=== PATIENT | male | born 1975 | race Caucasian/White ===

== ENCOUNTER 2025-03-10 08:12 | Emergency (ER) | payer BC ==
[~2025-03-10] VITALS: Ht 190.5 cm; Wt 101.0 kg
[2025-03-10 08:15] VITALS: TEMP 98.1
--- NOTE | 2025-03-10 08:42 | ED.PDOC ---
Back pain HPI HPI Comments 50 y.o male presents to the ED for a chief complaint of left lower back pain radiating to left lower leg associated with numbness going to his left leg and foot that started 5 days ago. Patient reports waking up with his 110lb cane [employer] dog on top of him the day prior to pain presenting. He mentions attempting to stretch/ice the pain and went to the chiropractor 2 days ago who aligned his hip. He states pain is sharp, constant rating a 9/10 on the pain, and impedes his daily life tasks and worsens when standing or movement. He took gabapentin at home and [place] yesterday with no relief. He states difficulty using the bathroom to pass a BM and/or urinate since pain presented but denies any sort of incontinence. He denies any nausea, vomiting, diarrhea,or recent fall or trauma. Patient denies any urinary or fecal incontinence. No saddle anesthesia. Chief Complaint: Lower Extremity Time Seen by MD: 09:59 Reviewed Notes: Nurses Notes, Medications, Allergies Allergies: Coded Allergies: Doxycycline (Verified Allergy, Unknown, 03/10/25) Information Source: Patient Mode of Arrival: Ambulatory Timing: Days (5) Duration: Since onset Location of Back pain: (L) Lower back Radiates to: Posterior: (L) Thigh Severity: Moderate Quality: Sharp Onset: Spontaneous Circumstance: Other History of: None Modifying Factors: No Movement, No Twisting, No Breathing, No Walking, No Nothing, No Other Associated signs and symptoms: Numbness:(L) Foot Past Medical History PAST MEDICAL HISTORY: Denies Surgical History: Denies all surgeries Family History Family History: Reviewed,noncontributory to illness Social History Smoker: Non-Smoker Alcohol: Occasionally Drugs: Denies Drug Use Constitutional: denies: chills, diaphoresis, fatigue, fever, malaise, sweats, weakness, others EENTM: denies: blurred vision, double vision, ear bleeding, ear discharge, ear drainage, ear pain, ear ringing, eye pain, eye redness, hearing loss, mouth pain, mouth swelling, nasal discharge, nose bleeding, nose congestion, nose pain, photophobia, tearing, throat pain, throat swelling, voice changes, others Respiratory: denies: cough, hemoptysis, orthopnea, SOB at rest, shortness of breath, SOB with excertion, stridor, wheezing, others Cardiovascular: denies: chest pain, dizzy spells, diaphoresis, Dyspnea on exertion, edema, irregular heart beat, left arm pain, lightheadedness, palpitations, PND, syncope, others Gastrointestinal: denies: abdomen distended, abdominal pain, blood streaked bowels, constipated, diarrhea, dysphagia, difficulty swallowing, hematemesis, melena, nausea, poor appetite, poor fluid intake, rectal bleeding, rectal pain, vomiting, others Genitourinary: denies: burning, dysuria, flank pain, frequency, hematuria, incontinence, penile discharge, penile sore, pain, testicle pain, testicle swelling, urgency, others Neurological: denies: dizziness, fainting, headache, left sided numbness, left sided weakness, numbness, paresthesia, pre-existing deficit, right sided numbness, right sided weakness, seizure, speech problems, tingling, tremors, weakness, others Musculoskeletal: reports: back pain, others (left lower extremity pain with heat sensation ); denies: gout, joint pain, joint swelling, muscle pain, muscle stiffness, neck pain Integumetry: denies: bruises, change in color, change in hair/nails, dryness, laceration, lesions, lumps, rash, wounds, others Allergic/Immunocompromised: denies: Difficulty Healing, Frequent Infections, Hives, Itching, others Hematologic/Lymphatic: denies: anemia, blood clots, easy bleeding, easy bruising, swollen glands, others Endocrine: denies: excessive hunger, excessive sweating, excessive thirst, excessive urination, flushing, intolerance to cold, intolerance to heat, unexplained weight gain, unexplained weight loss, others Psychiatric: denies: anxiety, bipolar disorder, depression, hopeless, panic disorder, schizophrenia, sleepless, suicidal, others All Other Systems: Reviewed and Negative Physical Exam General Appearance: Moderate Distress, Other (Hunched over in pain) HEENT: Normal ENT Inspection, Pharynx Normal, TMs Normal Neck: Full Range of Motion, Non-Tender, Normal, Normal Inspection Respiratory: Chest Non-Tender, Lungs Clear, No Accessory Muscle Use, No Respiratory Distress, Normal Breath Sounds Cardiovascular: No Edema, No JVD, No Murmur, No Gallop, Normal Peripheral Pulses, Regular Rate/Rhythm Breast Exam: Deferred Gastrointestinal: No Organomegaly, Non Tender, No Pulsatile Mass, Normal Bowel Sounds, Soft Genitalia: Deferred Pelvic: Deferred Rectal: Deferred Extremities: Other (Patient able to ambulate. Positive straight leg test to the left lower extremity. No leg swelling.) Musculoskeletal : Apperance: Normal Neurologic: Alert, administrative services coordinator II-XII nml as Tested, No Motor Deficits, Normal Affect, Normal Mood, No Sensory Deficits Cerebellar Function: Normal Reflexes: Normal Skin: Dry, Normal Color, Warm Lymphatic: No Adenopathy Was a procedure done? Was a procedure done?: No Back Pain Differential Dx Differential Diagnosis: Musculoskeletal Pain Other Differential Diagnosis Cauda equina syndrome, sciatica, radiculopathy X-Ray, Labs, Meds, VS Vital Signs Date Time Temp Pulse Resp B/P (MAP) Pulse Ox O2 Delivery O2 Flow Rate FiO2 03/10/25 10:21 80 18 171/119 03/10/25 08:15 98.1 89 18 172/94 98 98.1 Current Medications Medications (Trade) Dose Ordered Sig/Mannie Route Start Time Stop Time Status Last Admin Hydromorphone HCl (Dilaudid Injection) 1.5 mg ONCE ONCE IM 03/10/25 10:15 03/10/25 10:16 DC 03/10/25 10:21 Dexamethasone Sodium Phosphate (Decadron Injection) 10 mg ONCE ONCE PO 03/10/25 10:15 03/10/25 10:16 DC 03/10/25 10:20 Ketorolac Tromethamine (Toradol Injection) 60 mg ONCE ONCE IM 03/10/25 10:15 03/10/25 10:16 DC 03/10/25 10:21 50-year-old male presents here with left leg low back pain. He states the pain is worse to the calves that feels like heat. And worse when he starts walking. He states his dog was lying on him 2 days ago during sleep and he woke up with this pain. Patient is requesting cortisone shot advised him that it is something I can do here but he can go to a specialist. In the ER I have given him Dilaudid dexamethasone and Toradol. Clinically he is feeling much better afterwards. I did note his blood pressure was quite high likely secondary to pain. Repeat blood pressure after pain medications did show improvement. Repe at blood pressure 157/99. At this time I have discharged him him with [place] and Medrol Dosepak. Advised him to follow up with his PCP in 2-3 days and return to the ER if symptoms worsen or persist. Considered possible PE however he has no risk factors. No risk factors for DVT and leg is not swollen. Time of 1ST Reevaluation: 10:20 Reevaluation 1ST: Unchanged Time of 2ND Reevaluation: 10:41 Reevaluation 2ND: Improved Patient Education/Counseling: Diagnosis, Treatment, Prognosis Family Education/Counseling: No Family Present SEPSIS Sepsis Screen Date sepsis recognized/suspect: Mar 10, 2025 Time Sepsis recognized/suspect: 817 Recent Procedure: No On Antibiotic Therapy: No Respiratory Rate >20: No Heart Rate >90: No Temp<36 C (96.8 F) or >38.3 C: No SBP <90 or MAP <65 mmHG: No New Acute Mental Status Change: No Is the patient on CPAP, BIPAP,: No Vital Signs Date Time Temp Pulse Resp B/P (MAP) Pulse Ox O2 Delivery O2 Flow Rate FiO2 03/10/25 10:21 80 18 171/119 03/10/25 08:15 98.1 89 18 172/94 98 98.1 Medications Medications Dose Ordered Sig/Mannie Route Start Time Stop Time Status Last Admin Dose Admin Dexamethasone Sodium Phosphate 10 mg ONCE ONCE PO 03/10/25 10:15 03/10/25 10:16 DC 03/10/25 10:20 Hydromorphone HCl 1.5 mg ONCE ONCE IM 03/10/25 10:15 03/10/25 10:16 DC 03/10/25 10:21 Ketorolac Tromethamine 60 mg ONCE ONCE IM 03/10/25 10:15 03/10/25 10:16 DC 03/10/25 10:21 Departure 1 Departure Time of Disposition: 10:41 Impression: Primary Impression: Sciatica Qualified Codes: M54.32 - Sciatica, left side Disposition: HOME / SELF CARE / HOMELESS Condition: Fair Additional Instructions: Follow up with the primary care physician in 2-3 days. Return to the ER if symptoms worsen or persist. e-Prescriptions Methylprednisolone (Medrol Dosepak) 4 Mg Jose 4 MG PO UD, #21 TAB UAD Prov: CARLOS OTT MD 03/10/25 Ibuprofen (Ibuprofen) 600 Mg Tab 1 TAB PO TID PRN, #20 TAB Prov: CARLOS OTT MD 03/10/25 Hydrocodone-Acetaminophen (Hydrocodone/Acetaminophen 5-325 mg) 1 Tab Tab 1 TAB PO Q6HPRN PRN, #14 TAB Prov: CARLOS OTT MD 03/10/25 Discharged With: Self Critical Care Note Critical Care Time?: No Stability Stability form required: No Heart Score Heart Score: Heart Score Response (Comments) Value History N/A 0 EKG N/A 0 Age N/A 0 Risk Factors N/A 0 Troponin N/A 0 Total 0 I personally scribed for CARLOS OTT MD ([email or web address]) on 03/10/25 at 08:42. Electronically submitted by Dori Franklin ([facility]). I personally scribed for CARLOS OTT MD ([email or web address]) on 03/10/25 at 10:08. Electronically submitted by Dori Franklin ([facility]). I personally scribed for CARLOS OTT MD ([email or web address]) on 03/10/25 at 10:11. Electronically submitted by Dori Franklin ([facility]). CARLOS OTT MD Mar 10, 2025 08:42
[2025-03-10] MEDS: KETOROLAC TROMETH 60MG/2ML VIAL IM ONE (10:21)
[2025-03-10] MEDS: HYDROmorphone HCL 2 MG/ML VL/or syr IM ONE (10:21)
[2025-03-10 10:43] VITALS: BP 157/99
[2025-03-10 10:44] VITALS: PULSE 91; RESP 18; O2SAT 97
[2025-03-10] MEDS ORDERED: HYDR1TAB97 PO (10:44)
[2025-03-10] MEDS ORDERED: IBUP-1454 PO (10:44)
[2025-03-10] MEDS ORDERED: METH4PAK PO (10:44)
== END 2025-03-10 10:49 | disposition home or self-care (01) ==
LOC: ER 08:12
DX: M54.42 Lumbago with sciatica, left side (principal); F10.90 Alcohol use, unspecified, uncomplicated; Z88.1 Allergy status to other antibiotic agents; Y90.9 Presence of alcohol in blood, level not specified
CPT/HCPCS: 96372; 99284; J1100; J1171; J1885

== ENCOUNTER → 2025-03-13 | Outpatient (CLI) | payer BC ==
[~2025-03-13] MED LIST: HYDR1TAB97 PO; IBUP-1454 PO; METH4PAK PO
[2025-03-14 10:13] LABS: Hepatitis B Surface Antigen Negative (Negative)
== END | disposition home or self-care (01) ==
LOC: LAB 10:57
DX: R76.89 Other specified abnormal immunological findings in serum (principal)
CPT/HCPCS: 36415; 86038; 86703; 86706; 87340; 87902